=== PATIENT | male | born 1990 | race Caucasian/White ===

== ENCOUNTER 2024-06-20 03:42 | Day surgery (SDC) | payer OTHER ==
[2024-06-20] VITALS (239 sets, daily range): BP systolic 83–168; BP diastolic 43–104
[~2024-06-20] VITALS: Ht 172.7 cm; Wt 76.0 kg
--- NOTE | 2024-06-20 07:05 | NUR ---
Patient arrived to the [facility]R suite, identification and demographics confirmed. Patient to room 7, AAO, ambulatory, vitals obtained, ID/allergy/fall bands placed, changed into hospital gown, WILLIAM hose, and non-slip socks. Procedure and timeline explained for treatment and discharge. All questions answered and the patient presents no concerns at this time. V/S assessed, call light is near. Dr. Singh telephoned with patient intake information including usage, dose, last dose/time taken and initial vital signs. Patient history and allergies reviewed with MD. Orders received for 5mg PO Valium and 0.2mg PO Clonidine now. Will reassess per protocol and update MD with assessment and vitals.
[2024-06-20] MEDS ORDERED: CYANOCOBALAMIN 500 MCG/TAB ( B12) PO PRN (07:30)
[2024-06-20] MEDS ORDERED: ALBUTEROL SULFATE 2.5 MG VIAL IN PRN (07:30)
[2024-06-20] MEDS ORDERED: SCOPOLAMINE 1.5 MG DIS TD PRN (07:30)
[2024-06-20] MEDS ORDERED: LACTATED RINGER'S 1,000 ML IV PRN ×3 (07:30→19:00)
[2024-06-20] MEDS ORDERED: PANTOPRAZOLE SODIUM Sesquihydr 40 MG/TAB PO PRN (07:30)
[2024-06-20] MEDS ORDERED: diazePAM 5 MG/TAB PO PRN ×2 (07:30→08:30)
[2024-06-20] MEDS ORDERED: cloNIDine HCL 0.1 MG/TAB PO PRN (07:30)
[2024-06-20] MEDS ORDERED: FAMOTIDINE 20 MG/TAB PO PRN (07:30)
[2024-06-20] MEDS ORDERED: ASCORBIC ACID 4,000 MG in SODIUM CHLORIDE 0.9% 1,000 ML IV SCH (08:00)
[2024-06-20 08:17] LABS: BASO% 0.8 % (0-3); EOS% 6.8 % (0-8); HEMOGLOBIN 12.5 g/dl (14.0-18.0); IMMATURE GRANULOCYTES 0.2 % (0.0-5.0); LYMPH% 29.2 % (15-41); MEAN CORPUSCULAR HGB 28.3 pG CALC (26.0-32.0); MEAN CORPUSCULAR HGB CONC 32.9 g/dL CAL (32.0-36.0); MONO% 9.2 % (2-13); NEUT# 2.85 thou/uL (1.82-7.42); NEUT% 53.8 % (42-76); RED BLOOD COUNT 4.42 mill/uL (4.70-6.10); RED CELL DISTRI WIDTH 13.6 % (11.5-15.5)
[2024-06-20 08:49] LABS: ALBUMIN 4.4 g/dL (3.2-5.0); BILIRUBIN, TOTAL 0.5 mg/dL (0.2-1.3); CREATININE 0.7 mg/dL (0.7-1.3); POTASSIUM 4.5 mmol/l (3.5-5.1); TOTAL PROTEIN 7.7 g/dL (6.3-8.2)
--- NOTE | 2024-06-20 09:02 | NUR ---
RT AT BEDSIDE TO COMPLETE BEDSIDE EKG
[2024-06-20] MEDS ORDERED: SUCCINYLCHOLINE CHLORIDE 20 MG/ML 10ML VIAL IV PRN (09:10)
[2024-06-20] MEDS ORDERED: cloNIDine HCL 0.1 MG/TAB VT PRN (09:10)
[2024-06-20] MEDS ORDERED: cloNIDine HYDROCHLORIDE 100 MCG/ML 10 ML INJ IV PRN (09:10)
[2024-06-20] MEDS ORDERED: LIDOCAINE HCL 1% (10MG/ML) 100 MG/10 ML MDV IV PRN (09:10)
[2024-06-20] MEDS ORDERED: THIAMINE HCL 100 MG/ML 2ML VIAL IV PRN (09:10)
[2024-06-20] MEDS ORDERED: diazePAM 5 MG/TAB VT PRN (09:10)
[2024-06-20] MEDS ORDERED: PROPOFOL 100 ML IV PRN (09:10)
[2024-06-20] MEDS ORDERED: LIDOCAINE HCL 1% (10MG/ML) 100 MG/10 ML MDV VT PRN ×2 (09:10)
[2024-06-20] MEDS ORDERED: OCTREOTIDE ACETATE 100 MCG/VIAL SDV SC PRN (09:10)
[2024-06-20] MEDS ORDERED: NALTREXONE HCL 50 MG/TAB VT PRN (09:10)
[2024-06-20] MEDS ORDERED: STERILE WATER FOR IRRIGATION 1,000 ML BTL IR PRN (09:10)
[2024-06-20] MEDS ORDERED: ROCURONIUM BROMIDE 10 MG/ML 5ML VIAL IV PRN (09:10)
[2024-06-20] MEDS ORDERED: DEXAMETHASONE SODIUM PHOSPHATE PF 10 MG/ML SDV IV PRN ×2 (09:10→19:00)
[2024-06-20] MEDS ORDERED: POTASSIUM CHLORIDE 20 MEQ/100 ML BAG IV PRN (09:10)
[2024-06-20] MEDS ORDERED: ONDANSETRON HCl 4 MG/2 ML SDV IV PRN ×3 (09:10→19:00)
[2024-06-20] MEDS ORDERED: PROPOFOL 10 MG/ML 100ML VIAL IV PRN (09:10)
[2024-06-20] MEDS ORDERED: DiphenhydrAMINE HCL 50 MG/ML SDV IV PRN (09:10)
[2024-06-20] MEDS ORDERED: MIDAZOLAM HCL 2 MG/2 ML VIAL IV PRN (09:10)
[2024-06-20] MEDS ORDERED: MAGNESIUM SULFATE HEPTAHYDRATE 100 ML IV PRN (09:10)
--- NOTE | 2024-06-20 10:45 | NUR ---
Induction Note Time out performed at 1045. Patient placed on monitors, Patti hugger, bilateral wrist restraints applied for ET tube protection. Versed 5mg given IV push at 1050 Tourniquet applied to right arm Lidocaine 100mg given [id number] IV push followed by Rocoronium 10mg at 1052 IV push and held for 90 seconds. Propofol bolus of 160mg given at 1053 IV push. Succinylcholine 80mg given IV push at 1054. Smooth intubation with 7.5 ETT. Positive CO2. Positive Auscultation for air exchange. Patient placed on ventilator for spontaneous ventilation. Placed on Propofol IV drip at 1055. OG inserted. Positive air on auscultation. Positive gastric content. Stomach washed at this time.
--- NOTE | 2024-06-20 11:05 | NUR ---
OG close note Stomach washed at this time. Naltrexone 50 mg with Clonidine 0.1 mg via OG tube. OG will be clamped for 45 minutes.
--- NOTE | 2024-06-20 11:50 | NUR ---
OG open note OG open at this time. Gastric content draining into drainage bag. OG to drain for 45 minutes. Propofol will be titrated down based on patient.
--- NOTE | 2024-06-20 12:30 | NUR ---
OG close note Stomach washed at this time. Naltrexone 50 mg with Clonidine 0.2 mg via OG tube. OG will be clamped for 45 minutes.
--- NOTE | 2024-06-20 13:10 | NUR ---
OG open note OG open at this time due to patient vomiting. Gastric content draining into drainage bag. OG to drain for 45 minutes. Propofol will be titrated down based on patient.
--- NOTE | 2024-06-20 14:10 | NUR ---
OG close note Stomach washed at this time. Naltrexone 50 mg with Clonidine 0.2 mg via OG tube. OG will be clamped for 45 minutes.
[2024-06-20] MEDS ORDERED: NALTREXONE50 MG PO (14:53)
[2024-06-20] MEDS ORDERED: KLONOPIN2 MG PO (14:54)
[2024-06-20] MEDS ORDERED: CLONIDINE0.1 MG PO (14:54)
--- NOTE | 2024-06-20 16:15 | NUR ---
HEART MONITOR CHANGES NOTED. DR GIRON NOTIFED.
--- NOTE | 2024-06-20 16:55 | NUR ---
OG close note Stomach washed at this time. Naltrexone 12.5 mg with Clonidine 0.2 mg with valium 10mg via OG tube. OG will be clamped for 30 minutes.
--- NOTE | 2024-06-20 17:35 | NUR ---
Extubation note Closing medications given Benadryl 50mg IV push, Decadron 10mg IV push,Magnesium 4 grams IV, Zofran 8mg IV push, Octreotide 100mcg SC. Stomach washed out prior to extubation. Suctioned gastric content. OG removed. Patient extubated. Propofol Discontinued. Wrist restraints removed. Patti hugger Removed. See ANR Moderate sedate recovery record for further notes and assessment.
--- NOTE | 2024-06-20 18:08 | NUR ---
fe provided update
--- NOTE | 2024-06-20 18:20 | NUR ---
patient to [facility] via bed
[2024-06-20] MEDS ORDERED: LORazepam 2 MG/ML IV PRN ×2 (19:00)
[2024-06-20] MEDS ORDERED: PROMETHAZINE HCL 25 MG in SODIUM CHLORIDE 0.9% 50 ML IV PRN (19:00)
[2024-06-20] MEDS ORDERED: KETOROLAC TROMETHAMINE 30 MG/ML SDV IV PRN (19:00)
[2024-06-20] MEDS ORDERED: HALOPERIDOL LACTATE 5 MG/ML SDV IV PRN (19:00)
[2024-06-20] MEDS ORDERED: PROMETHAZINE HCL 12.5 MG in SODIUM CHLORIDE 0.9% 50 ML IV PRN (19:00)
[2024-06-20] MEDS ORDERED: ACETAMINOPHEN 1,000 MG/100 ML VIAL IV PRN (19:00)
[2024-06-20] MEDS ORDERED: ACETAMINOPHEN 500 MG TAB PO PRN (19:00)
--- NOTE | 2024-06-20 20:00 | NUR ---
REPORT RECEIVED FROM ANR NURSE BELEN. PT NTOED LAYING IN BED SUPINE, ON RM AIR. PT AROUSABLE TO PAIN, PRESENTS VERY DROWSY. PT DENIES ANY N/V/P AT THIS TIME. NURSING ASSESSMENT COMPLETED AND IV SITES APPEARS HEALTHY AND INTACT WITH FLUIDS RUNNING PER EMAR. VSS. NO S/S OF DISTRESS. BED ALARM ON AND SAFETY PRECAUTIONS IN PLACE.
[2024-06-20] MEDS ORDERED: PATIENT' OWN MED CONTROLLED 1 EA DOSE IV PRN (21:00)
[2024-06-20] MEDS ORDERED: clonazePAM 1 MG/TAB PO PRN (23:00)
[2024-06-20] MEDS ORDERED: cloNIDine HCL 0.1 MG/TAB PO SCH (23:00)
--- NOTE | 2024-06-21 | NUR ---
PT LAYING IN BED SLEEPING. VSS. NO S/S OF DISTRESS. IVF RUNNING PER EMAR. BED ALARM ON AND SAFETY PRECAUTIONS IN PLACE.
[2024-06-21] MEDS ORDERED: cloNIDine HCL 0.1 MG/TAB PO PRN (04:00)
[2024-06-21] MEDS ORDERED: NALTREXONE HCL 50 MG/TAB PO SCH ×2 (04:00→11:00)
[2024-06-21] MEDS ORDERED: clonazePAM 1 MG/TAB PO PRN ×2 (04:00→08:00)
[2024-06-21 04:20] VITALS: BP 105/66
--- NOTE | 2024-06-21 05:15 | NUR ---
PT ADMINSTERED 0400 MEDICATIONS PER EMAR. TOLERATED WELL AND DENIES ANY N/V/P AT THIS TIME. PT IS A/OX2 TO SELF AND PLACE, REORIENTED TO TIME. NEW IV ACCESS WAS STARTED DUE TO PT IV INFILTRATING AND REMOVED WITH CATHETER INTACT. IVF RUNNING PER EMAR. PT LAYING IN BED ON RT SIDE, VSS. NO S/S OF DISTESS. PT WAS ABLE TO MAKE NEEDS KNOWN TO VOID AND GENERAL MAINTENANCE ENGINEER ASSISTED PT WITH URINAL. PT VOIDED WITHOUT DIFFICULTY. BED ALARM ON AND SAFETY PRECAUTIONS IN PLACE.
[2024-06-21 05:51] LABS: BASO% 0.2 % (0-3); HEMATOCRIT 40.9 % (39.0-50.0); HEMOGLOBIN 13.4 g/dl (14.0-18.0); IMMATURE GRANULOCYTES 0.2 % (0.0-5.0); LYMPH% 10.1 % (15-41); MEAN CELL VOLUME 85.6 fL CALC (80.0-100.0); MEAN CORPUSCULAR HGB CONC 32.8 g/dL CAL (32.0-36.0); MONO% 1.8 % (2-13); NEUT# 8.16 thou/uL (1.82-7.42); NEUT% 87.7 % (42-76); RED BLOOD COUNT 4.78 mill/uL (4.70-6.10); RED CELL DISTRI WIDTH 13.3 % (11.5-15.5)
[2024-06-21 06:00] LABS: ALBUMIN 4.4 g/dL (3.2-5.0); BILIRUBIN, TOTAL 0.6 mg/dL (0.2-1.3); CREATININE 0.7 mg/dL (0.7-1.3); MAGNESIUM 2.3 mg/dL (1.6-2.3); POTASSIUM 4.2 mmol/l (3.5-5.1); TOTAL PROTEIN 7.8 g/dL (6.3-8.2)
--- NOTE | 2024-06-21 07:34 | NUR ---
patient a/o x2; room air; breathing unlabored and even; denied any pain; denied any n/d/v at this time; patient pulled out iv; cleaned area, area have no s/s of infection; denied needing anything; patient in shower at this time; call light on bed; bed in lowest postion;
[2024-06-21] MEDS ORDERED: PANTOPRAZOLE SODIUM Sesquihydr 40 MG/TAB PO SCH (08:00)
[2024-06-21] MEDS ORDERED: cloNIDine HCL 0.1 MG/TAB PO SCH (08:00)
[2024-06-21] MEDS ORDERED: ACETAMINOPHEN 325 MG/TAB PO SCH (08:00)
[2024-06-21 08:01] VITALS: BP 120/70
[2024-06-21] MEDS ORDERED: ACETAMINOPHEN 500 MG TAB PO PRN (09:00)
[2024-06-21] MEDS ORDERED: MAGNESIUM OXIDE 400 MG/TAB PO PRN (09:00)
[2024-06-21] MEDS ORDERED: Cholecalciferol 2,000 UNIT/TAB PO PRN (09:00)
--- NOTE | 2024-06-21 11:20 | NUR ---
patient have some snezzing and sweating, medicated with naltrexone 25mg per EMAR, verbal approval from Dr. Singh, order in chart
--- NOTE | 2024-06-21 12:32 | NUR ---
patient is resting in bed; room air; breathing unlabored and even; denied any n/d/v at this time; deneid any pain; Dr. Singh talked to patient; no iv site due to patient pulling out; no s/s of distress or withdrawls; call light within reach, verbalized understanding on how to use, encouraged to eat lunch; bed in lowest postion; bed alarm activated
--- NOTE | 2024-06-21 14:21 | NUR ---
IV site discontinued, cath intact. No edema , no redness, voices no discomfort. Patient decides to leave AMA. Multiple attempts made to ecourage patient to remain here for continued treatment. Explained to patient all risks of leaving against medical advice including . Pt verbalized understanding of all risks. Pt also encouraged to return to [facility] at any time, especially if symptoms continue or become worse. Pt verbalized understanding.
== END 2024-06-21 14:21 | disposition left against medical advice (07) | DRG 894 ==
LOC: ANR 03:42 → MS2 03:42 → ANR 10:00
PROVIDERS: ATTEND Anesthesiology Critical Care Medicine
DX: F11.20 Opioid dependence, uncomplicated (principal)
CPT/HCPCS: J1100; J2060; J2354; J3475; J3490